=== PATIENT | female | born 1960 | race Caucasian/White ===

== ENCOUNTER 2016-04-26 08:21 | Day surgery (SDC) | payer OTHER ==
[~2016-04-26] VITALS: Ht 160 cm; Wt 54.2 kg
[~2016-04-26 08:21] MED LIST: ACET325T51 PO; ALEN70TA2 PO; CALC600T12 PO; CHOL10008 PO; CITA20TA11 PO; Clindamycin 900 mg/50 mL D5W IV ONE; DSLF250T PO; MONT10TA23 PO; MULT-1018 PO; TRAM50TA2 PO; VIT1TABL83 PO; flaxseed oil; lecithin
[2016-04-26] MEDS ORDERED: Propofol 10,000 mCg/mL 20 mL Inj ONE (08:22)
[2016-04-26] MEDS ORDERED: Dexamethasone 4 mg/mL Inj ONE (08:22)
[2016-04-26] MEDS ORDERED: Phenylephrine 10,000 mCg/mL Inj ONE (08:22)
[2016-04-26] MEDS ORDERED: fentaNYL-PF 50 mCg/mL 2 mL Inj ONE ×2 (08:22→12:46)
[2016-04-26] MEDS ORDERED: Ondansetron 2 mg/mL 2 mL Inj ONE (08:22)
[2016-04-26 08:39] VITALS: BP 103/66; PULSE 78; RESP 18; O2SAT 100
[2016-04-26] MEDS: Lactated Ringer's 1,000 ML IV SCH ×2 (09:02→10:58)
[2016-04-26] MEDS ORDERED: strontium PO (09:17)
[2016-04-26] MEDS ORDERED: HYDR-4003 PO (09:18)
[2016-04-26] MEDS ORDERED: Lactated Ringer's 1,000 ML IV SCH (10:11)
[2016-04-26] MEDS ORDERED: Lactated Ringer's 500 ML IV PRN (10:11)
--- NOTE | 2016-04-26 10:11 | PCM.HPANE ---
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) Medications Hypertension Medication: No Home Meds Incl Beta Santosh: No Reported Medications Hydrocodone-Acetaminophen 5-325 mg 1 Each Tablet1 Tab PO BID #60 04/26/16 [strontium] No Conflict Check2 Tablet PO DAILY 04/26/16 Disulfiram (Antabuse)250 Mg [id number] Mg PO PRN For Alcohol Cessation 04/24/16 Acetaminophen 325 Mg Vuckgw041 Mg PO Q4H PRN For Pain Ref 0 04/24/16 Alendronate Sodium (Fosamax)70 Mg Mlkvis98 Mg PO WEEKLY 30 Days Ref 0 04/24/16 Tramadol 50 Mg Bakckh80 Mg PO Q4H PRN For Pain Ref 0 04/24/16 Cholecalciferol (Vitamin D3) (Vitamin D3)1,000 Unit Tab.chew5,000 Unit PO DAILY 04/24/16 Vit B Comp/C/FA/Iron/Vit E (Vitamin B Complex Tablet)1 Each Tablet1 Each PO DAILY 04/24/16 Multivitamin (Multi Vitamin Daily)1 Each Tablet1 Each PO DAILY 30 Days Ref 0 04/24/16 Citalopram 20 Mg Ymliik24 Mg PO DAILY Ref 0 04/24/16 Calcium Carbonate (Calcium)600 Mg Rlxkrx595 Mg PO DAILY 04/24/16 Discontinued Reported Medications Montelukast 10 Mg Xtzind78 Mg PO HS Ref 0 04/24/16 [lecithin] No Conflict CheckUnknown Dose DAILY 04/24/16 [flaxseed oil] No Conflict CheckUnknown Dose DAILY 04/24/16 Acetaminophen 325 Mg Ptjeuj542 Mg PO Q4H PRN For Pain Ref 0 02/21/16 Alendronate Sodium (Fosamax)70 Mg Zkqafz57 Mg PO WEEKLY 30 Days Ref 0 02/21/16 [Stontium] No Conflict Check Daily 02/21/16 Tramadol 50 Mg Pfvzhq34 Mg PO Q4H PRN For Pain Ref 0 02/21/16 Aspirin 325 Mg Bztwqo432 Mg PO prn PRN prn #1 BOTTLE 07/29/15 Disulfiram (Antabuse)250 Mg Bkzoft087 Mg PO 07/29/15 Cholecalciferol (Vitamin D3) (Vitamin D3)1,000 Unit Tab.chew1,000 Unit PO DAILY 07/26/15 Vit B Comp/C/FA/Iron/Vit E (Vitamin B Complex Tablet)1 Each Tablet1 Each PO DAILY 07/26/15 Multivitamin (Multi Vitamin Daily)1 Each Tablet1 Each PO DAILY 30 Days Ref 0 07/26/15 Citalopram 20 Mg Gevkbf24 Mg PO DAILY Ref 0 07/26/15 Calcium Carbonate (Calcium)600 Mg Tablet1,200 Mg PO DAILY 07/26/15 History History of ENT Problems?: No HEENT History: Denies:: Cataracts Difficult Intubation Glaucoma Hearing Problem Sinus Problem Hx of Heart Problems?: No Cardiovascular History: Denies:: Abdominal Aortic Aneurism Cardiac Surgery Chest Pain Coronary Artery Disease Edema Heart Murmur Hypertension Pacemaker Rheumatic Fever Thrombophlebitis Hx of Respiratory Problem?: No Respiratory History: Denies:: Asthma COPD Dyspnea Emphysema Hemoptysis Oxygen Administration Tuberculosis Use of C-PAP Machine Hx Neurologic Problems?: Yes Neurological History: Denies:: Alzheimer's Disease CVA Dementia (short term memory issues since craniotomy 2011) Dizziness Headaches Multiple Sclerosis Parkinson's Disease Seizures Hx of GI Problems?: No Gastrointestinal History: Denies:: Cirrhosis Diverticulitis Gastroesphageal Reflux Heartburn Hepatitis Rectal Bleeding Hx of Problems?: No Genitourinary History: Denies:: HX of Hemodialysis Kidney Stones Urinary Tract Infection Female Hx: Positive for:: Problems with Breasts? (breast reconstruction current admission plan) Denies:: Currently (post menopausal) Endometriosis Pelvic Inflammatory Skin History: Denies:: History Skin Disorders? Pressure Ulcers Hx Musculoskeletal Problems?: Yes Musculoskeletal History: Positive for:: Musculoskeletal Trauma (osteoporosis, will need hip replaced this summer -avascular necrosis) Denies:: Back Injury Joint Replacement Osteoarthritis Rheumatoid Arthritis Systemic Lupus Hx of Psycho/Social Problems?: Yes Psycho Social History: Positive for:: Hx Depression Denies:: Anxiety Bipolar Disorder Hx Surgeries?: Yes (BILAT BREAST BX,LT BR LUMPECTOMY,ORIF BILAT WRISTS,LT HIP, HUMERUS,CRANIOTOM) Hx Any Other Health Problems?: Yes Other History: Positive for:: Cancer (breast) Hospitalization Denies:: Endocrine Disease Thyroid Disease History Blood Transfusions: Positive for:: Accept Blood Products? Denies:: Blood Transfusions Hx Diabetes: No Hx Alcohol Use: Yes (hx of binge drinking- none for several years)Alcoholic Drinks Per Day: took antabuse recently (not for her drinking, because of family dynamic)Hx Substance Use: No Smoking Status: Former Smoker Have You Smoked inLast 12 mo: No Stop/Bang Treated for Sleep Apnea?: No Do You Have a CPAP Machine?: No S-Snoring: Do You Snore Loudly: No T-Tired: feel tired, fatigued: No O-Obsered: Observed not breath: No P-Blood Pressure: treated: No B- Body Mass Index > 35 kg/m2: No A- Age over 50: No N- Neck Large Circumference: No G- Gender Male: No CHRISTIANE Total Score: 0 CHRISTIANE Risk Assessment: Low Risk, <3 Yes Risk Assessment Category Category 1A: Patient has history of documented sleep apnea, and HAS NOT received any narcotic, sedative or anesthesia administration during this stay. Category 1B: Patient has history of documented sleep apnea, and HAS received any narcotic , sedative or anesthesia administration during this stay Category 2: Patient has SUSPECTED Obstructive Sleep Apnea, and HAS received any narcotic , sedative or anesthesia administration during this stay. Category 3: Patient has SUSPECTED Obstructive Sleep Apnea and HAS NOT received narcotic, sedative or anesthesia administration during this stay. Category 4: Outpatient in Procedural Areas with known sleep apnea or who screen positive for High Risk via the STOP/BANG questionnaire. Exam Exam Vital Signs Vital Signs Date Time Temp Pulse Resp B/P Pulse Ox O2 Delivery O2 Flow Rate FiO2 04/26/16 08:39 36.5 78 18 103/66 100 Room Air General Appearance: Alert, Oriented X3, Cooperative, No Acute Distress HEENT/AIRWAY: MP 1 Lungs: Clear to Auscultation, Normal Air Movement Heart: Exam Unremarkable, Normal S1, Normal S2, No Murmurs/Rubs/Gallops Meds/Labs/Diagnostics Admission Meds Current Medications Lactated Ringer's (Lr) 1,000 ml @ 120 mls/hr Q8H20M IV Last administered on t 09:02; Start 04/26/16 at 05:00; Stop 04/26/16 at 13:19 Plan Impression Patient chart reviewed, patient interviewed and anesthestic plan with risks, benefits, and alternatives discussed, and informed consent obtained. NPO Status: 04/25/16 1800 ASA Physical Status: ASA2 Mod Systemic Disease Anesthetic Plan: GA Bene/Risks/Altern/Consents: Yes HP Complete Prior to Induction: Yes Raul Salinas DO Apr 26, 2016 10:11
[2016-04-26] MEDS ORDERED: Phenylephrine 10,000 mCg/mL Inj IVPUSH PRN (10:15)
[2016-04-26] MEDS ORDERED: Dexamethasone 4 mg/mL Inj IVPUSH PRN (10:15)
[2016-04-26] MEDS ORDERED: Labetalol 5 mg/mL 4 mL Inj IV PRN (10:15)
[2016-04-26] MEDS ORDERED: Ondansetron 2 mg/mL 2 mL Inj IVPUSH PRN (10:15)
[2016-04-26] MEDS ORDERED: Atropine 0.4 mg/mL Inj IVPUSH PRN (10:15)
[2016-04-26] MEDS ORDERED: HYDROmorphone 1 mg/mL Inj IVPUSH PRN (10:15)
[2016-04-26] MEDS ORDERED: MetoCLOpramide 5 mg/mL 2 mL Inj IVPUSH PRN (10:15)
[2016-04-26] MEDS ORDERED: EPHEDrine Sulfate 50 mg/mL Inj IVPUSH PRN (10:15)
[2016-04-26] MEDS ORDERED: Bacitracin 50,000 unit Inj IRRIGATION ONE (10:57)
[2016-04-26] MEDS ORDERED: Lactated Ringer's 1,000 ML IV ONE (11:54)
[2016-04-26 12:10] VITALS: BP 148/89; PULSE 96; RESP 15; O2SAT 100
[2016-04-26] MEDS ORDERED: HYDROcodone-APAP 5-325 mg Tablet PO PRN (12:10)
[2016-04-26 12:15] VITALS: BP 140/81; PULSE 86; RESP 10; O2SAT 99
[2016-04-26] MEDS: fentaNYL-PF 50 mCg/mL 2 mL Inj IVPUSH PRN ×2 (12:15→12:23)
[2016-04-26 12:20] VITALS: BP 116/79; PULSE 81; RESP 11; O2SAT 96
[2016-04-26 12:31] VITALS: BP 124/83; PULSE 95; RESP 19; O2SAT 99
[2016-04-26 12:35] VITALS: BP 123/80; PULSE 95; RESP 12; O2SAT 100
[2016-04-26] MEDS ORDERED: HYDROcodone-APAP 5-325 mg Tablet PO ONE (12:48)
--- NOTE | 2016-04-26 13:32 | PCM.ANEP1 ---
Post Anesthesia Phase 1 PACU Phase 1 Assessment Date of Service: Apr 26, 2016 Vital Signs Vital Signs Date Time Temp Pulse Resp B/P Pulse Ox O2 Delivery O2 Flow Rate FiO2 04/26/16 12:35 95 12 123/80 100 Room Air 04/26/16 12:31 95 19 124/83 99 Room Air 04/26/16 12:20 81 11 116/79 96 Room Air 04/26/16 12:15 86 10 140/81 99 Room Air 04/26/16 12:10 36.3 96 15 148/89 100 Room Air 04/26/16 08:39 36.5 78 18 103/66 100 Room Air Anesthetic Administered: GA Level of Alertness: Drowsy, not talking METZGER's with Equal Strength: Yes Pain: No Nausea or Vomiting: No Oxygen Delivery: Simple Mask Lungs: Clear to Auscultation, Normal Air Movement Dermatome Level: Full Sensation Raul Salinas DO Apr 26, 2016 13:32
--- NOTE | 2016-04-26 15:14 | PCM.ANEP2 ---
Post Anesthesia Evaluation ASA/CMS Post Anesthesia Date of Service: Apr 26, 2016 VS in Patient's Normal Range?: Yes Resp Stable; Airway Patent?: Yes CV Function & Hydration Stable: Yes Mental Status Recovered?: Yes Pain control Satisfactory?: Yes N/V Control Satisfactory?: Yes Raul Salinas DO Apr 26, 2016 15:14
--- NOTE | 2016-04-27 17:26 | OP ---
[address] [address] OPERATIVE REPORT PATIENT: CARISSA DONALD : 1960 MR#: [id number] ADMIT: 04/26/2016 JOB ID: [id number] DATE OF SURGERY: 04/26/2016 PREOPERATIVE DIAGNOSIS(ES): 1. Breast cancer status post bilateral mastectomy with subsequent reconstruction complicated with a right breast infection. 2. Asymmetry in reconstructed breasts. 3. Deformity in reconstructed breasts. POSTOPERATIVE DIAGNOSIS(ES): 1. Breast cancer status post bilateral mastectomy with subsequent reconstruction complicated with a right breast infection. 2. Asymmetry in reconstructed breasts. 3. Deformity in reconstructed breasts. PROCEDURE: 1. Removal of intact bilateral breast prosthesis. 2. Replacement of bilateral breast prosthesis with smooth round implants. 3. Bilateral revision breast reconstruction with peripheral capsulotomy as well as enlargement of the subpectoral space to the level of the clavicle, as well as lowering of the right inframammary fold. SURGEON: Bob Mejias MD INSURANCE SALESPERSON: Nadja Lima PA-C, who was present and necessary for retraction, exposure, and closure of the incision. ANESTHESIA: General anesthesia. ESTIMATED BLOOD LOSS: 10 mL. COMPLICATIONS: None apparent. SPECIMEN: None. INDICATIONS FOR PROCEDURE: This is a patient with a history of left breast cancer who developed a right breast cancer. The patient was taken back to the operating room for bilateral mastectomy with subsequent reconstruction. The patient's recovery course was complicated by skin flap necrosis on the right side necessitating several revisions. The patient had eventually completed her breast reconstruction. However, due to her thin soft tissue, the patient had significant palpability and debility of her textured implant. The patient also has some asymmetry in terms of the contour. Initially I had planned for the patient to undergo bilateral exchange of her textured implant with smooth implant to have better mobility and softness. I would also like to fat graft the left skin flap to add more bulk and durability. However, the liposuction system was not functional and not available. I discussed the options with the patient and the patient elected to proceed with implant exchange and revision breast reconstructions only. PROCEDURE AND FINDINGS: The patient was identified in the preoperative area. The surgical site was marked. With the patient in sitting position, I marked the desired implant pocket. The patient was then taken back to the operating room and placed supine on the operating table. Appropriate time-outs were taken. General anesthesia was induced smoothly. The patient was then prepped and draped in the usual sterile manner. I first turned my attention to the right breast. Her previous incision was opened with a #10 blade. The incision was then deepened down through the soft tissue and through some of the pectoralis major muscle and the AlloDerm entering the implant pocket. The implant was removed. The pocket was irrigated with antibiotic solution. At this point, using electrocautery, I did a medial and superior capsulotomy, as well as some superior lateral capsulotomy from approximately the 4 o'clock position all the way to the 10 o'clock position. Care was taken to device through the capsule with electrocautery. Medially I elevated some of the pec muscle fiber off of the sternum for approximately 1 cm, medializing the medial border of the pocket. Superiorly I dissected along the avascular plane to near the clavicle. Laterally the capsule was released until there was a smooth transition between the capsulotomy site and the current the lateral pocket. Once this had been done, a 360 cc implant sizer was then placed into the implant pocket. It was noted to be too big and too tight. With the implant sizer in the pocket, I marked the areas of soft tissue tethering and tightness. Once the implant was removed, the area of tightness was then further released. I had to perform some inferolateral capsulotomy between approximately the 7 o'clock position and the 9 o'clock position to allow for the pocket to round out. Once this had been done, hemostasis was obtained with electrocautery. A 325 cc smooth round silicone implant was then obtained. It was then rinsed in antibiotic solution. The pocket was then rinsed in antibiotic solution. The implant was then placed into the pocket. Once this had been done, a layer of 2-0 PDS simple running suture was then used to reapproximate the AlloDerm and the muscle. A layer of 3-0 Vicryl vklfwh-dv-xztdd sutures was then used to reapproximate the soft tissue and some of the residual muscle fiber. Epidermal reapproximation was then carried out with 3-0 Monocryl deep dermal suture and 4-0 Monocryl running subcuticular suture. I then turned my attention to the left breast. The soft tissue was quite thin. I did not want to enter the surgical site through the previous mastectomy incision. Instead an inframammary incision was then made a couple of millimeters above the inframammary fold. Once this had been done, I deepened the incision down through the underlying subcutaneous tissue to the implant capsule. This was opened. The implant was then removed. Again, a circumferential capsulotomy was carried out. This was done carefully at the junction of the anterior posterior capsule. Again, this was done circumferentially as the pocket on the left side was slightly tighter and the inframammary fold was slightly higher. The inframammary fold was dissected down for approximately half a centimeter to the desired position. Again care was taken to elevate the medial pec fiber off of the sternum until the desired medial edge of the pocket was obtained. Superiorly dissection was carried out to just below the clavicle. Laterally, approximately 1 cm of capsulotomy was also carried out. Once this had been done, the 360 cc implant sizer was then placed into the pocket. Again, tight and tethered spots were marked. The implant was then removed and the tight spots were further dissected with electrocautery and opened. Hemostasis was obtained with electrocautery. A 320 cc smooth round silicone implant was then obtained and dipped in antibiotic solution. The pocket was irrigated with antibiotic solution. The implant was then placed into the pocket. The incision was then reapproximated, first with a layer of 3-0 Vicryl tolyzd-qa-swttp sutures reapproximating the deep breast capsule to the deep fascia about the inframammary fold. A layer of 3-0 Vicryl tzuivx-cq-sibyu sutures was then used to reapproximate the subcutaneous tissue. A layer of 3-0 Monocryl deep dermal sutures was then placed, followed by 4-0 Monocryl running subcuticular suture. The patient tolerated the procedure well. Needle count, sponge count, and instrument counts were correct at the end of the procedure. The patient was extubated and transported to recovery in stable condition.
[2016-06-08] MEDS ORDERED: CYAN10008 PO (17:06)
[2016-06-08] MEDS ORDERED: CLIN-77 PO (17:06)
[2016-06-08] MEDS ORDERED: FLAX100038 PO (17:06)
[2016-06-08] MEDS ORDERED: MONT10TA23 PO (17:06)
[2016-06-08] MEDS ORDERED: LECI400C PO (17:06)
== END 2016-04-26 23:59 | disposition home or self-care (01) ==
LOC: SAS 08:21
PROVIDERS: ATTEND Plastic Surgery
DX: N65.1 Disproportion of reconstructed breast (principal); N64.89 Other specified disorders of breast; M81.0 Age-related osteoporosis without current pathological fracture; Z86.14 Personal history of Methicillin resistant Staphylococcus aureus infection
CPT/HCPCS: 19328; 19340; 19380; C1789; J1100; J2250; J2370; J2405; J3010; J7120

== ENCOUNTER 2016-06-14 06:14 | Day surgery (SDC) | payer OTHER ==
[~2016-06-14] VITALS: Ht 160 cm; Wt 53.8 kg
[2016-06-14] VITALS (9 sets, daily range): BP systolic 85–146; BP diastolic 34–95; PULSE 70–93; RESP 8–22; O2SAT 95–99
[~2016-06-14 06:14] MED LIST changes: -ACET325T51 PO; -ALEN70TA2 PO; +CLIN-77 PO; +CYAN10008 PO; -Clindamycin 900 mg/50 mL D5W IV ONE; +Clindamycin 900 mg/50 mL D5W IV SCH; -DSLF250T PO; +FLAX100038 PO; +LECI400C PO; -TRAM50TA2 PO; -flaxseed oil; -lecithin
[2016-06-14] MEDS ORDERED: Dexamethasone 4 mg/mL Inj ONE (06:15)
[2016-06-14] MEDS ORDERED: EPHEDrine/NS 5 mg/mL 5 mL Syringe ONE (06:15)
[2016-06-14] MEDS ORDERED: fentaNYL-PF 50 mCg/mL 2 mL Inj ONE (06:15)
[2016-06-14] MEDS ORDERED: Propofol 10,000 mCg/mL 20 mL Inj ONE (06:15)
[2016-06-14] MEDS ORDERED: Rocuronium 10 mg/mL 5 mL Inj ONE (06:15)
[2016-06-14] MEDS ORDERED: Ondansetron 2 mg/mL 2 mL Inj ONE (06:15)
--- NOTE | 2016-06-14 06:44 | PCM.HPANE ---
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) Medications Reported Medications Cyanocobalamin (Vitamin B-12) (Vitamin B-12)1,000 Mcg Tablet1,000 Mcg PO DAILY 06/08/16 Montelukast 10 Mg Cbzcty93 Mg PO HS Ref 0 06/08/16 Lecithin, Soy (Lecithin)400 Mg Kbzthqo116 Mg PO DAILY 06/08/16 Flaxseed Oil ([place]-3 Flaxseed Oil)1,000 Mg Capsule1,000 Mg PO DAILY 06/08/16 Clindamycin 150 Mg Lixuhqs021 Mg PO QID Ref 0 06/08/16 Cholecalciferol (Vitamin D3) (Vitamin D3)1,000 Unit Tab.chew5,000 Unit PO DAILY 04/24/16 Vit B Comp/C/FA/Iron/Vit E (Vitamin B Complex Tablet)1 Each Tablet1 Each PO DAILY 04/24/16 Multivitamin (Multi Vitamin Daily)1 Each Tablet1 Each PO DAILY 30 Days Ref 0 04/24/16 Citalopram 20 Mg Ljlayf88 Mg PO DAILY Ref 0 04/24/16 Calcium Carbonate (Calcium)600 Mg Tablet1,200 Mg PO Q2 DAYS 04/24/16 Discontinued Reported Medications Hydrocodone-Acetaminophen 5-325 mg 1 Each Tablet1 Tab PO BID #60 04/26/16 [strontium] No Conflict Check2 Tablet PO DAILY 04/26/16 Disulfiram (Antabuse)250 Mg Xdebzu421 Mg PO PRN For Alcohol Cessation 04/24/16 Acetaminophen 325 Mg Ajcthx119 Mg PO Q4H PRN For Pain Ref 0 04/24/16 Alendronate Sodium (Fosamax)70 Mg Ueeoaw27 Mg PO WEEKLY 30 Days Ref 0 04/24/16 Tramadol 50 Mg Zxbczw36 Mg PO Q4H PRN For Pain Ref 0 04/24/16 History History of ENT Problems?: No HEENT History: Denies:: Cataracts Difficult Intubation Hearing Problem Sinus Problem Hx of Heart Problems?: No Cardiovascular History: Denies:: Abdominal Aortic Aneurism Cardiac Surgery Chest Pain Edema Heart Murmur Hypertension Pacemaker Rheumatic Fever Thrombophlebitis Hx of Respiratory Problem?: No Respiratory History: Denies:: Asthma COPD Dyspnea Emphysema Hemoptysis Oxygen Administration Tuberculosis Use of C-PAP Machine Hx Neurologic Problems?: Yes Neurological History: Denies:: Alzheimer's Disease CVA Dementia (short term memory issues since craniotomy 2011) Dizziness Headaches Multiple Sclerosis Parkinson's Disease Seizures Other Neurological Pertinent: S/P CRANIOTOMY FOR SUBDURAL HEMATOMA Hx of GI Problems?: No Gastrointestinal History: Denies:: Cirrhosis Diverticulitis Gastroesphageal Reflux Heartburn Hepatitis Rectal Bleeding Hx of Problems?: No Genitourinary History: Denies:: HX of Hemodialysis Kidney Stones Urinary Tract Infection Female Hx: Positive for:: Problems with Breasts? (S/P B/L BREAST BX/ MASTECTOMY W/ RECONSTR. LT BR ASYMMETRY=CURRENT PROBLEM) Denies:: Currently Endometriosis Pelvic Inflammatory Skin History: Denies:: History Skin Disorders? 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,HUMERUS RPR,B/L ORIF WRISTS) Osteoarthritis (OSTEOPOROSIS) Denies:: Back Injury Joint Replacement Systemic Lupus Hx of Psycho/Social Problems?: Yes Psycho Social History: Positive for:: Hx Depression Denies:: Anxiety Bipolar Disorder Hx Surgeries?: Yes (BILAT BREAST BX,LT BR LUMPECTOMY,ORIF BILAT WRISTS,LT HIP, HUMERUS,CRANIOTOM) Hx Any Other Health Problems?: Yes Other History: Positive for:: Cancer (B/L BREASTS) Hospitalization Denies:: Endocrine Disease Thyroid Disease History Blood Transfusions: Denies:: Blood Transfusions Hx Diabetes: No Hx Alcohol Use: Yes (hx of binge drinking- none for several years HX WITHDRAWAL)Hx Substance Use: No Smoking Status: Former Smoker Have You Smoked inLast 12 mo: No Stop/Bang S-Snoring: Do You Snore Loudly: No T-Tired: feel tired, fatigued: No O-Obsered: Observed not breath: No P-Blood Pressure: treated: No B- Body Mass Index > 35 kg/m2: No A- Age over 50: Yes N- Neck Large Circumference: No G- Gender Male: No CHRISTIANE Total Score: 1 Risk Assessment Category Category 1A: Patient has history of documented sleep apnea, and HAS NOT received any narcotic, sedative or anesthesia administration during this stay. Category 1B: Patient has history of documented sleep apnea, and HAS received any narcotic , sedative or anesthesia administration during this stay Category 2: Patient has SUSPECTED Obstructive Sleep Apnea, and HAS received any narcotic , sedative or anesthesia administration during this stay. Category 3: Patient has SUSPECTED Obstructive Sleep Apnea and HAS NOT received narcotic, sedative or anesthesia administration during this stay. Category 4: Outpatient in Procedural Areas with known sleep apnea or who screen positive for High Risk via the STOP/BANG questionnaire. Exam Exam General Appearance: Alert, Oriented X3, Cooperative HEENT/AIRWAY: MP 2, Neck Movement (from), Mouth Opening (wnl) Lungs: Clear to Auscultation Heart: Exam Unremarkable Plan Impression Patient chart reviewed, patient interviewed and anesthestic plan with risks, benefits, and alternatives discussed, and informed consent obtained. NPO Status: 04/25/16 1800 ASA Physical Status: ASA1 Normal Healthy Anesthetic Plan: GA Bene/Risks/Altern/Consents: Yes HP Complete Prior to Induction: Yes Armaan Bauer MD Jun 14, 2016 06:44
[2016-06-14] MEDS: Lactated Ringer's 1,000 ML IV SCH ×2 (06:58→08:58)
[2016-06-14] MEDS ORDERED: Acetaminophen IV 1,000 MG in IV Premix 1 EACH IV ONE (08:40)
[2016-06-14] MEDS ORDERED: Lactated Ringer's 500 ML IV PRN (08:56)
[2016-06-14] MEDS ORDERED: Lactated Ringer's 1,000 ML IV SCH (08:56)
[2016-06-14] MEDS ORDERED: Phenylephrine 10,000 mCg/mL Inj IVPUSH PRN (09:00)
[2016-06-14] MEDS ORDERED: Atropine 0.4 mg/mL Inj IVPUSH PRN (09:00)
[2016-06-14] MEDS ORDERED: EPHEDrine Sulfate 50 mg/mL Inj IVPUSH PRN (09:00)
[2016-06-14] MEDS ORDERED: EPHEDrine Sulfate 50 mg/mL Inj IM PRN (09:00)
[2016-06-14] MEDS ORDERED: HYDROmorphone 1 mg/mL Inj IVPUSH PRN (09:00)
[2016-06-14] MEDS ORDERED: hydrOXYzine Inj 50 MG/1 mL SDV IM PRN (09:00)
[2016-06-14] MEDS ORDERED: Ondansetron 2 mg/mL 2 mL Inj IVPUSH PRN (09:00)
[2016-06-14] MEDS ORDERED: hydrALAZINE 20 mg/mL Inj IVPUSH PRN (09:00)
[2016-06-14] MEDS ORDERED: Labetalol 5 mg/mL 4 mL Inj IV PRN (09:00)
[2016-06-14] MEDS ORDERED: Dexamethasone 4 mg/mL Inj IVPUSH PRN (09:00)
[2016-06-14] MEDS ORDERED: fentaNYL-PF 50 mCg/mL 2 mL Inj IVPUSH PRN (09:00)
[2016-06-14] MEDS ORDERED: HYDROcodone-APAP 10-325 mg PO PRN (11:15)
--- NOTE | 2016-06-14 12:15 | PCM.ANEP1 ---
Post Anesthesia Phase 1 PACU Phase 1 Assessment Vital Signs Vital Signs Date Time Temp Pulse Resp B/P Pulse Ox O2 Delivery O2 Flow Rate FiO2 06/14/16 11:57 36.3 90 13 126/65 96 Room Air 06/14/16 11:54 36.3 89 16 130/72 98 Room Air 06/14/16 11:45 36.4 89 8 130/74 97 Room Air 06/14/16 11:40 88 22 121/77 99 Nasal Cannula 3 06/14/16 11:35 88 18 85/34 95 Nasal Cannula 3 06/14/16 11:30 36.6 146/95 06/14/16 06:58 35.9 70 16 102/63 98 Room Air Anesthetic Administered: GA Level of Alertness: Awake, talking METZGER's with Equal Strength: Yes Pain: No Nausea or Vomiting: No Oxygen Delivery: Room Air Lungs: Normal Air Movement Armaan Bauer MD Jun 14, 2016 12:15
--- NOTE | 2016-06-14 14:18 | PCM.ANEP2 ---
Post Anesthesia Evaluation ASA/CMS Post Anesthesia VS in Patient's Normal Range?: Yes Resp Stable; Airway Patent?: Yes CV Function & Hydration Stable: Yes Mental Status Recovered?: Yes Pain control Satisfactory?: Yes N/V Control Satisfactory?: Yes Armaan Bauer MD Jun 14, 2016 14:18
--- NOTE | 2016-06-16 00:18 | OP ---
[address] [address] OPERATIVE REPORT PATIENT: CARISSA DONALD : 1960 MR#: [id number] ADMIT: 06/14/2016 JOB ID: [id number] DATE OF SURGERY: 06/14/2016 PREOPERATIVE DIAGNOSIS(ES): 1. History of breast cancer. 2. Breast deformity bilateral, status post breast reconstruction. 3. Breast asymmetry. POSTOPERATIVE DIAGNOSIS(ES): 1. History of breast cancer. 2. Breast deformity bilateral, status post breast reconstruction. 3. Breast asymmetry. PROCEDURE: 1. Revision breast reconstruction of the left breast. 2. Fat grafting to bilateral breasts. SURGEON: Attending surgeon: Bob Mejias MD. ENTERPRISE APPLICATION DEVELOPER: Travon Davies PA-C, who was present for necessary retraction, exposure and closure of the incisions. ANESTHESIA: General anesthesia. ESTIMATED BLOOD LOSS: 60 cc. COMPLICATIONS: None apparent. SPECIMEN: None. INDICATIONS FOR PROCEDURE: This is a 56-year-old female patient with a history of left-sided breast cancer. The patient had a complicated breast reconstruction history with revision. Patient most recently was planned for exchange of bilateral textured implant to smooth implant, as well as fat grafting to correct some of the soft tissue deficiency on the left superior pole. However, at the time of her surgery we did not have the equipment to perform liposuction. The fat grafting part of the procedure was canceled. Patient presents today to complete her reconstruction. PROCEDURE AND FINDINGS: The patient was identified in the preoperative area. Surgical site was marked. With the patient in sitting position, I marked the soft tissue deficiency on the left side along the medial and superior pole of the breast. The patient also wanted a small spot on the right breast grafted. This spot was also marked. The patient also is unhappy about appearance of the right nipple-areolar complex and wishes that it is slightly larger, similar to the left breast. This area was also marked. The patient was then taken back to the operating room and placed supine on the operating table. Appropriate time-outs were taken. General anesthesia was induced smoothly. The patient was then prepped and draped in the usual sterile manner. I first turned my attention to the left breast. I opened up patient's previous axial dissection incision. I opened up approximately the anterior third of the incision. This was done with a #10 blade. I then deepened the incision down to the underlying pectoralis major muscle with electrocautery. Once I encountered the lateral edge of the muscle I turned my dissection anteriorly and elevated the skin flap off of the pectoralis major muscle. This was done to the area of soft tissue deficiency as marked previously in the preoperative area. The area of soft tissue deficiency was elevated. Once this had been done I turned my attention to the abdomen. The approach was to obtain fat graft with liposuction. I also marked an area for de-epithelialization and then excision with resulting dermal fat graft obtained if fat injection is not enough to completely correct the deformity. I performed liposuction of the lower abdomen from the umbilicus down to the pubic symphysis with power assisted liposuction. This was done after tumescent solution was infiltrated at this area. Approximately 300 cc of aspirate was obtained. Once this has been done, an area of lower abdominal skin approximately 6 cm in width was then marked. Ellipse was marked. The inferior border of the ellipse lied along patient's previous scar. Superiorly, the ellipse was again 6 cm in width. Incision was then made around the ellipse with a #15 blade. This area was then de-epithelialized. The incision was then deepened down to the underlying Karla's fascia. This piece of dermis and superficial adipose tissue was then removed off the Karla's fascia and kept on this side for possible dermal fat grafting. Once this had been done, hemostasis was obtained with electrocautery. The incision was then reapproximated first with a layer of 3-0 Monocryl deep dermal suture, followed by 4-0 Monocryl running subcuticular suture. While the closure was carried out by the PA the fatty aspirate was processed with the [email or web address] System. Approximately 85 cc of fat was obtained. I then turned my attention to the right breast. A small stab incision was made just medial to the area of the soft tissue deficiency as marked previously. Approximately 4 cc to 5 cc of fat was infiltrated into this area. The fat graft was massaged to spread out evenly. I then turned my attention to the left breast. Again, several stab incisions were made. The residual 75 cc or so of the fat graft was infiltrated into the area of soft tissue deficiency. Again, massage was carried out to evenly distribute the fat and smooth out the contour. Once the fat graft had been injected it was noted that the left superior pole defect was completely corrected without needing the dermal fat graft. I then turned my attention to the right nipple-areolar complex. A small crescent was excised superior and inferior to the nipple-areolar complex to enlarge the nipple-areolar complex. Once this had been done, the incisions were reapproximated first with a layer of 3-0 Monocryl deep dermal suture, followed by 4-0 more Monocryl running subcuticular suture. The patient tolerated the procedure well. Needle count, sponge count and instrument counts were correct at the end of the procedure. The patient was extubated and transported to recovery in stable condition, where a lower abdominal binder was placed.
== END 2016-06-14 23:59 | disposition home or self-care (01) ==
LOC: SAS 06:14
PROVIDERS: ATTEND Plastic Surgery
DX: N65.1 Disproportion of reconstructed breast (principal); F32.9 Major depressive disorder, single episode, unspecified; Z87.891 Personal history of nicotine dependence; Z79.899 Other long term (current) drug therapy; Z85.3 Personal history of malignant neoplasm of breast
CPT/HCPCS: 19380; J0171; J1100; J2250; J2405; J3010; J7120